=== PATIENT | male | born 1995 | race Caucasian/White ===

== ENCOUNTER 2021-01-13 20:09 | Emergency (ER) | payer OTHER ==
[~2021-01-13] VITALS: Ht 190.5 cm; Wt 117.9 kg
--- NOTE | 2021-01-13 20:52 | ED EENT ---
History of Present Illness General Chief Complaint: Dental Problems/Pain Stated Complaint: SWOLLEN FACE, BODY RASH, SOB Source: patient Exam Limitations: no limitations History of Present Illness Date Seen by Provider: Jan 13, 2021 Time Seen by Provider: 20:39 Initial Comments 25-year-old male with no significant past medical history coming in due to the right side of his face being swollen over the past couple days. He states a tooth broke and he is concerned that is infected. This happened a couple days ago and the swelling occurred shortly after that. No fever but is having facial swelling on the right side upper jaw with pain in that side. He does not notice any voice changes or pain going down his throat. He has been tolerating p.o. He is taking Tylenol and ibuprofen with last dose is a couple hours ago. He has an appointment with a dentist in the morning. He also noticed some hives earlier today that are migrating and now are gone. He has not had any other medications other than the anti-inflammatory. Allergies and Home Medications Allergies Coded Allergies: No Known Drug Allergies (Unverified , 01/13/21) Patient Home Medication List Home Medication List Reviewed: Yes Review of Systems Review of Systems Constitutional: No fever Eyes: Denies Blurred Vision Ears: Denies Dizziness, Denies Pain Nose: denies congestion Mouth: pain, swelling Throat: denies pain, denies swelling Respiratory: No cough, No dyspnea on exertion, No short of breath Cardiovascular: chest pain Gastrointestinal: No abdominal pain, No diarrhea, No nausea, No vomiting Musculoskeletal: No back pain Skin: rash Neurological: Denies Anxiety, Denies Depressed Hematologic/Lymphatic: No Symptoms Reported Immunological/Allergic: no symptoms reported Physical Exam Vital Signs Vital Signs - First Documented 01/13/21 20:39 Temp 36.9 Pulse 123 Resp 18 B/P (MAP) 151/99 (116) Pulse Ox 96 O2 Delivery Room Air Height, Weight, BMI Height: '" Weight: lbs. oz. kg; BMI Method: General Appearance: WD/WN, no apparent distress Nose: normal inspection Mouth/Throat: dental tenderness, mandibular swelling; No pharynx swelling, No tonsillar exudate, No tonsillar swelling, No trismus, No uvula swelling, No voice changes Neck: non-tender, full range of motion, supple, normal inspection Cardiovascular: no JVD, no murmur, tachycardia Respiratory: chest non-tender, lungs clear, normal breath sounds, no respiratory distress Gastrointestinal: normal bowel sounds, non tender; No distended, No guarding, No rebound Neurologic/Psychiatric: no motor/sensory deficits, alert, normal mood/affect Skin: normal color, warm/dry Procedures/Interventions I&D : Site: mouth Blade Size: 11 Progress Periapical abscess on top right portion of the mouth which was anesthetized with an infraorbital block with partial anesthesia to the site, 11 blade introduced with moderate amount of purulent drainage, minimal bleeding. Tolerated procedure well. Progress/Results/Core Measures Results/Orders Lab Results Laboratory Tests Test 01/13/21 20:55 Range/Units Lactic Acid Level 1.91 0.50-2.00 MMOL/L My Orders Orders - KEYLA WILKINSON MD Ampicillin/Sulbactam Injection (Unasyn 3 (01/13/21 21:00) Lidocaine 1% Inj 20 Ml (Xylocaine 1% Inj (01/13/21 21:00) Blood Culture (01/13/21 21:04) Ed Iv/Invasive Line Start (01/13/21 21:04) Vital Signs Adult Sepsis Patie Q15M (01/13/21 21:04) O2 (01/13/21 21:04) Lactic Acid Analyzer (01/13/21 21:04) Medications Given in ED Current Medications Medications Dose Ordered Sig/Mati Route Start Time Stop Time Status Last Admin Dose Admin Ampicillin Sodium/ Sulbactam Sodium 3 gm/Sodium Chloride 100 ml @ 200 mls/hr ONCE ONCE IV 01/13/21 21:00 01/13/21 21:29 DC 01/13/21 21:05 200 MLS/HR Lidocaine HCl 20 ml ONCE ONCE INJ 01/13/21 21:00 01/13/21 21:01 DC 01/13/21 21:06 20 ML Vital Signs/I&O 01/13/21 20:39 Temp 36.9 Pulse 123 Resp 18 B/P (MAP) 151/99 (116) Pulse Ox 96 O2 Delivery Room Air Progress Progress Note : Progress Note 25-year-old male with above history coming in due to swelling in his face in the setting of a broken infected tooth. ABCs were intact and vitals were stable on presentation although he is tachycardic. IV is placed and he was given a bolus of IV fluids. He has an obvious periapical abscess and given his tachycardia he was given IV Unasyn. Incision and drainage was performed by me with moderate amount of purulent discharge. He has a dental appointment in the morning. He does not have any rash on exam and is currently not having any chest pain or shortness of breath that he states he was having earlier. He has no neck tenderness that would be concerning for LaMere syndrome, he also has no treads is in the floor of his mouth is soft and no concern for Dung's angina at this time. His oropharynx is clear otherwise and no concern for peritonsillar absce ss. His voice is normal and he is tolerating p.o. I believe he is stable for discharge with follow-up with his dentist in the morning. He will go home with antibiotics after receiving his first IV dose tonight. Departure Impression Primary Impression: Dental abscess Disposition: HOME, SELF-CARE Condition: Stable Departure-Patient Inst. Decision time for Depature: 22:03 Patient Instructions: Fractured Tooth (DC) Add. Discharge Instructions: He was seen in the emergency department for a dental infection called a periapical abscess. A lot of the drainage did come out when we incised it today but there is still infection there and the tooth needs to come out. Please continue to follow-up with the dentist tomorrow like he stated he would. He did receive an IV antibiotic tonight and you should be good until morning when you a re due for your next dose. I have written a prescription for this. If you have any fever, the swelling becomes significantly worse, your voice begins to change, pain begins going severe down your neck, or you have any other concerns and please come back to the emergency department. All discharge instructions reviewed with patient and/or family. Voiced understanding. Scripts Ibuprofen (Ibuprofen) 800 Mg Tablet 800 MG PO Q8H PRN for PAIN for 5 Days, #15 TAB 0 Refills Prov: KEYLA WILKINSON MD 01/13/21 Amoxicillin/Potassium Clav (Augmentin 875-125 Tablet) 1 Each Tablet 1 EACH PO BID for 7 Days, #14 TAB 0 Refills Prov: KEYLA WILKINSON MD 01/13/21 KEYLA WILKINSON MD Jan 13, 2021 20:52
[2021-01-13] MEDS ORDERED: LIDOCAINE 1% INJ 20 ML 20 ML VIAL INJ ONE (21:00)
[2021-01-13] MEDS ORDERED: AMPICILLIN/SULBACTAM INJECTION 3 GM in NS (IVPB) 100 ML IV ONE (21:00)
[2021-01-13] MEDS ORDERED: IBUP-1780 PO (22:06)
[2021-01-13] MEDS ORDERED: AMOX-358 PO (22:06)
[2021-01-13 22:18] VITALS: BP 117/70
== END 2021-01-13 22:22 | disposition home or self-care (01) ==
LOC: ER 20:14
DX: K04.7 Periapical abscess without sinus (principal)
CPT/HCPCS: 83605; 87040

== ENCOUNTER 2021-10-03 10:39 | Emergency (ER) | payer OTHER ==
[~2021-10-03 10:39] MED LIST: AMOX-358 PO; IBUP-1780 PO
[2021-10-03] MEDS ORDERED: ONDANSETRON 4 MG (ZOFRAN) ORAL DISSOLVE TAB PO STA (11:19)
[2021-10-03] MEDS ORDERED: HYDROcodone/APAP 5 MG/325 MG (LORTAB) TAB PO ONE (11:30)
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
[2021-10-03 12:37] VITALS: BP 124/79
== END 2021-10-03 12:14 | disposition home or self-care (01) ==
LOC: EDUNIT# 10:39 → ER 10:41
DX: S05.12XA Contusion of eyeball and orbital tissues, left eye, initial encounter (principal); H11.32 Conjunctival hemorrhage, left eye; Y04.2XXA Assault by strike against or bumped into by another person, initial encounter
CPT/HCPCS: 70450; 70486